=== PATIENT | female | born 1980 | race African-American/Black ===

== ENCOUNTER 2022-06-12 13:20 | Emergency (ER) | payer BC, OTHER | END 2022-06-12 14:40 | disposition home or self-care (01) | LOC: CSHERS 13:20 | DX: E11.40 Type 2 diabetes mellitus with diabetic neuropathy, unspecified (principal); I11.0 Hypertensive heart disease with heart failure; I50.9 Heart failure, unspecified | CPT/HCPCS: 99283 ==